=== PATIENT | female | born 1945 | race Two or more races ===

== ENCOUNTER 2024-09-19 13:17 | Emergency (ER) | payer OTHER ==
[~2024-09-19] VITALS: Ht 157.5 cm; Wt 72.6 kg
[2024-09-19] MEDS ORDERED: METFORMIN HCL500 M1 PO (18:45)
[2024-09-19] MEDS ORDERED: MYRBETRIQ50 MG PO (18:45)
[2024-09-19] MEDS ORDERED: AMLODIPINE BESY10 MG PO (18:46)
[2024-09-19] MEDS ORDERED: METOPROLOL SUCC50 MG PO (18:46)
[2024-09-19] MEDS ORDERED: BETAMETHASONE V15 G1 (18:46)
[2024-09-19] MEDS ORDERED: LEVOTHYROXINE88 MCG PO (18:46)
[2024-09-19] MEDS ORDERED: LEVOTHYROXINE75 MCG PO (18:46)
[2024-09-19] MEDS ORDERED: HYDRALAZINE HCL50 MG PO (18:46)
[2024-09-19] MEDS ORDERED: TELMISARTAN-HC1 EAC1 PO (18:46)
[2024-09-19] MEDS ORDERED: PRAVASTATIN SOD20 MG PO (18:46)
[2024-09-19] MEDS ORDERED: KETOROLAC TROMETHAMINE 60 MG VIAL IM ONE (19:30)
== END 2024-09-19 22:30 | disposition home or self-care (01) ==
LOC: ER 13:17
DX: S93.491A Sprain of other ligament of right ankle, initial encounter (principal); X58.XXXA Exposure to other specified factors, initial encounter; Y93.89 Activity, other specified; Y92.89 Other specified places as the place of occurrence of the external cause; Y99.8 Other external cause status; I10 Essential (primary) hypertension; E03.8 Other specified hypothyroidism; E11.9 Type 2 diabetes mellitus without complications; Z79.84 Long term (current) use of oral hypoglycemic drugs; Z88.5 Allergy status to narcotic agent
CPT/HCPCS: 73600; 96372; 99283; J1885